=== PATIENT | female | born 1970 | race Caucasian/White ===

== ENCOUNTER 2016-12-26 13:12 | Emergency (ER) | payer SELFPAY ==
[~2016-12-26] VITALS: Ht 157.5 cm; Wt 106.6 kg
--- NOTE | ~2016-12-26 | US85 ---
[facility] A Service of [facility] RADIOLOGY TEXT RESULTS PATIENT: GALINA QUARLES LOCATION: CFTX : 66 UNIT #: [id number] AGE: [address]: Lucero Taylor APRN SEX: F ORDER DR: [id number] [facility] [address] [place], [place] [address] [id number] E MR#: [id number] Acc #: [id number] NAME: GALINA QUARLES : 1970 SEX: F STUDY DATE/TIME: 12/26/2016 14:55 UNIT: CFTX ROOM: STUDY DESCRIPTION: [facility] Attending Physician: Lucero Taylor A.P.R.N. Ordering Physician: [facility] Primary Care Physician: Primary Care Physician No MEDICAL IMAGING REPORT This report is preliminary unless electronic signature is present EXAM Left leg vein Doppler, 12/26/16 INDICTION Left leg pain for the last 5 days. TECHNIQUE Venous ultrasound examination of the left lower extremity was performed using grayscale, spectral Doppler and color flow Doppler imaging. FINDINGS The examination is negative. There is no evidence of left lower extremity deep venous thrombus from the groin to the lower calf. Visualized greater saphenous vein is also patent. IMPRESSION Negative examination. No evidence of left lower extremity deep venous thrombosis. Dictated by... Ammon Osborne Jr., M.D. THIS IS AN ELECTRONICALLY VERIFIED REPORT Ammon Osborne Jr., M.D. at 12/27/2016 1:53 PM RLK/jae TD: 12/27/2016 08:27 JOB #: [id number] [facility] A Service of [facility] RADIOLOGY TEXT RESULTS PATIENT: GALINA QUARLES LOCATION: CFTX : 66 UNIT #: [id number] AGE: [address]: Lucero Taylor APRN SEX: F ORDER DR: MEDICAL IMAGING REPORT Page 1 of 1 COPY
--- NOTE | ~2016-12-26 | CR169 ---
[facility] A Service of [facility] RADIOLOGY TEXT RESULTS PATIENT: GALINA QUARLES LOCATION: CFTX : 66 UNIT #: [id number] AGE: [address]: Lucero Taylor APRN SEX: F ORDER DR: [id number] [facility] [address] [place], [place] [address] [id number] E MR#: [id number] Acc #: [id number] NAME: GALINA QUARLES : 1970 SEX: F STUDY DATE/TIME: 12/26/2016 14:27 UNIT: CFTX ROOM: STUDY DESCRIPTION: CR Knee 2 Views Lt Attending Physician: Lucero Taylor A.P.R.N. Ordering Physician: Ed Doc Berta Almanzar Primary Care Physician: No Primary Care Physician MEDICAL IMAGING REPORT This report is preliminary unless electronic signature is present EXAM Left knee 12/26. INDICATIONS Knee pain for 1 week. No trauma. FINDINGS Two views of the left knee were obtained. There is tricompartmental osteoarthritis with spur formation. No fracture or malalignment is seen. There is no joint effusion. IMPRESSION Tricompartmental osteoarthritis. No acute findings in the knee. Dictated by... Ammon Osborne Jr., M.D. THIS IS AN ELECTRONICALLY VERIFIED REPORT Ammon Osborne Jr., M.D. at 12/27/2016 1:53 PM LEONOR/kyree TD: 12/27/2016 08:21 JOB #: [id number] MEDICAL IMAGING REPORT Page 1 of 1 COPY
== END 2016-12-26 15:40 | disposition home or self-care (01) ==
LOC: CFTX 13:12 → CED 13:12 → CFTX 14:42
DX: M17.12 Unilateral primary osteoarthritis, left knee (principal); M79.605 Pain in left leg; Z88.2 Allergy status to sulfonamides
CPT/HCPCS: 29530; 73560; 93971; 99284